=== PATIENT | male | born 1990 | race Caucasian/White ===

== ENCOUNTER 2016-12-13 19:29 | Emergency (ER) | payer BC ==
[~2016-12-13] VITALS: Ht 165.1 cm; Wt 78.4 kg
[~2016-12-13 19:29] MED LIST: ADDERALL XR25 MG PO
[2016-12-13 19:33] VITALS: BP 128/77; TEMP 97.4
[2016-12-13] MEDS ORDERED: CEPHALEXIN500 M1 PO (21:14)
[2016-12-13 21:24] VITALS: PULSE 87
== END 2016-12-13 21:25 | disposition home or self-care (01) ==
LOC: COL.ER 19:29
DX: L03.012 Cellulitis of left finger (principal)

== ENCOUNTER 2017-10-13 06:38 | Emergency (ER) | payer SELFPAY ==
[~2017-10-13] VITALS: Ht 167.6 cm; Wt 90.0 kg
[~2017-10-13 06:38] MED LIST changes: +CEPHALEXIN500 M1 PO
[2017-10-13 06:43] VITALS: BP 148/84; TEMP 97.8
[2017-10-13 07:47] VITALS: PULSE 69
== END 2017-10-13 07:47 | disposition home or self-care (01) ==
LOC: COL.ER 06:38
DX: R11.10 Vomiting, unspecified (principal)

== ENCOUNTER 2018-01-18 13:49 | Emergency (ER) | payer BC ==
[~2018-01-18] VITALS: Ht 167.6 cm; Wt 90.0 kg
[2018-01-18 13:53] VITALS: BP 172/87; TEMP 99.3
[2018-01-18 17:16] VITALS: PULSE 86
== END 2018-01-18 17:19 | disposition home or self-care (01) ==
LOC: COL.ER 13:49
DX: R05 Cough (principal); Z87.891 Personal history of nicotine dependence; Z96.22 Myringotomy tube(s) status; Z88.2 Allergy status to sulfonamides; Z88.0 Allergy status to penicillin

== ENCOUNTER 2018-11-26 17:01 | Emergency (ER) | payer SELFPAY ==
[~2018-11-26] VITALS: Ht 167.6 cm; Wt 79.5 kg
[2018-11-26 17:23] VITALS: BP 147/95; TEMP 98.6
[2018-11-26] MEDS ORDERED: CEPHALEXIN500 M1 PO (18:14)
[2018-11-26 18:22] VITALS: PULSE 84
== END 2018-11-26 18:28 | disposition home or self-care (01) ==
LOC: COL.ER 17:01
DX: L03.011 Cellulitis of right finger (principal); J45.909 Unspecified asthma, uncomplicated; F17.210 Nicotine dependence, cigarettes, uncomplicated; Z88.2 Allergy status to sulfonamides; Z88.0 Allergy status to penicillin